=== PATIENT | female | born 1965 ===

== ENCOUNTER 2021-04-12 06:39 | Inpatient (IN) | payer OTHER ==
[~2021-04-12] VITALS: Ht 157.5 cm; Wt 71.7 kg
[~2021-04-12 06:39] MED LIST: LIPITO PO; VASOTEC20 M1 PO
[2021-04-13] MEDS ORDERED: LIPITOR20 MG PO (08:13)
[2021-04-15] MEDS ORDERED: PERCOCET 5-3251 EACH PO (13:43)
[2021-04-15] MEDS ORDERED: NEURONTIN600 M1 PO (13:44)
[2021-04-15] MEDS ORDERED: POLY119PG PO (13:44)
== END 2021-04-15 14:11 | disposition home or self-care (01) | DRG 337 ==
LOC: CIR.AMB 06:39 → SURG 14:35 → O/R 14:35 → SURG 16:01
PROVIDERS: ADMIT Surgery; ATTEND Surgery
PROC: 0WUF0JZ Supplement Abdominal Wall with Synthetic Substitute, Open Approach (ICD-10-PCS; 2021-04-12)
PROC: 0DNW0ZZ Release Peritoneum, Open Approach (ICD-10-PCS; principal; 2021-04-12 09:30)
DX: K40.31 Unilateral inguinal hernia, with obstruction, without gangrene, recurrent (principal); K66.0 Peritoneal adhesions (postprocedural) (postinfection)